=== PATIENT | male | born 1985 | race Two or more races ===

== ENCOUNTER 2016-09-10 10:41 | Emergency (ER) | payer SELFPAY ==
[~2016-09-10] VITALS: Ht 182.9 cm; Wt 85.7 kg
[2016-09-10 10:51] VITALS: BP 102/37
[2016-09-10] MEDS ORDERED: NEOMYCIN-BACITRACIN-POLYM UNITDOSE PKG TOP OINT TOP ONE (12:15)
[2016-09-10] MEDS ORDERED: LIDOCAINE 1% HCL (LOCAL ANESTH.) INJ 20ML MDV IJ ONE (12:15)
[2016-09-10] MEDS ORDERED: TETANUS-DIPTH-ACEL PERTUSSIS 0.5ML SYRG IM ONE (12:45)
== END 2016-09-10 12:55 | disposition home or self-care (01) ==
LOC: ER 10:42
DX: S61.211A Laceration without foreign body of left index finger without damage to nail, initial encounter (principal); S61.217A Laceration without foreign body of left little finger without damage to nail, initial encounter; S61.213A Laceration without foreign body of left middle finger without damage to nail, initial encounter; S61.215A Laceration without foreign body of left ring finger without damage to nail, initial encounter; W11.XXXA Fall on and from ladder, initial encounter; Y93.39 Activity, other involving climbing, rappelling and jumping off; Y99.8 Other external cause status; Y92.89 Other specified places as the place of occurrence of the external cause
CPT/HCPCS: 12004; 73130; 90471; 90715; 99284; J2001